=== PATIENT | male | born 1985 | race Asian ===

== ENCOUNTER 2017-03-27 15:32 | Emergency (ER) | payer BC, OTHER ==
[~2017-03-27] VITALS: Ht 167.6 cm; Wt 56.7 kg
--- NOTE | 2017-03-27 16:00 | NUR ---
PT CAME IN FOR "SHINGLES", LL ABD PAIN AND BACK PAIN. NAD NOTED. REPORTS HAVING SAME SYMPTOMS OF SHINGLES 3 YEARS AGO. AT FOR EVAL. VSS. SAFETY AND COMFORT MEASURES PROVIDED. WILL MONITOR.
[2017-03-27 16:15] LABS: APPEARANCE,URINE Clear (CLEAR); BILIRUBIN,URINE Negative (NEGATIVE); BLOOD, URINE Negative Ery/uL (NEGATIVE); COLOR,URINE Yellow (YELLOW); KETONES,URINE Negative (NEGATIVE); LEUKOCYTE ESTERASE ,URINE Negative (NEGATIVE); NITRITE, URINE Negative (NEGATIVE); PH,URINE 7.5 (5.0-8.0); PROTEIN,URINE Negative (NEGATIVE); UGLUCOSE Negative (NEGATIVE); UROBILINOGEN,URINE 0.2 EU/dL (0.2)
--- NOTE | 2017-03-27 16:33 | NUR ---
Patient discharged to home in stable condition. Written and verbal after care instructions given. Patient verbalizes understanding of instruction.
[2017-03-27 16:34] VITALS: BP 130/74
== END 2017-03-27 16:36 | disposition home or self-care (01) ==
LOC: ER 15:38
DX: B02.9 Zoster without complications (principal)
CPT/HCPCS: 81001; 82962; 99283; A4606; Z7610; 81000-TC

== ENCOUNTER 2018-11-03 12:08 | Emergency (ER) | payer BC, MEDICAID ==
[~2018-11-03] VITALS: Ht 167.6 cm; Wt 63.5 kg
[2018-11-03 12:19] VITALS: BP 131/88
--- NOTE | 2018-11-03 12:23 | NUR ---
PT MADE COMFORTABLE AWAITING MD.
== END 2018-11-03 12:56 | disposition home or self-care (01) ==
LOC: ER 12:18
DX: R21 Rash and other nonspecific skin eruption (principal)

== ENCOUNTER 2019-07-03 11:28 | Emergency (ER) | payer BC, MEDICAID ==
[~2019-07-03] VITALS: Ht 167.6 cm; Wt 65.3 kg
[2019-07-03 11:34] VITALS: BP 134/91
== END 2019-07-03 12:34 | disposition home or self-care (01) ==
LOC: ER 11:34
DX: M54.42 Lumbago with sciatica, left side (principal); F10.10 Alcohol abuse, uncomplicated; Y90.9 Presence of alcohol in blood, level not specified

== ENCOUNTER 2019-07-08 09:05 | Emergency (ER) | payer BC, OTHER ==
[~2019-07-08] VITALS: Ht 170.2 cm; Wt 70.8 kg
[2019-07-08 09:13] VITALS: BP 119/82
--- NOTE | 2019-07-08 09:44 | NUR ---
PT. VERBALIZED UNDERSTANDING OF AFTERCARE INSTRUCTIONS. Patient discharged to home in stable condition. Written and verbal after care instructions given. Patient verbalizes understanding of instruction.
== END 2019-07-08 10:12 | disposition home or self-care (01) ==
LOC: ER 09:05
DX: M54.5 Low back pain (principal); F10.10 Alcohol abuse, uncomplicated; Y90.9 Presence of alcohol in blood, level not specified

== ENCOUNTER 2019-11-19 15:07 | Outpatient (CLI) | payer BC, OTHER | END 2019-11-19 23:59 | disposition home or self-care (01) | LOC: RAD 15:07 | DX: M41.84 Other forms of scoliosis, thoracic region (principal); M41.82 Other forms of scoliosis, cervical region | CPT/HCPCS: 72050-TC; 72074-TC ==

== ENCOUNTER 2020-01-25 10:40 | Emergency (ER) | payer BC, OTHER ==
[~2020-01-25] VITALS: Ht 167.6 cm; Wt 61.2 kg
[2020-01-25 10:47] VITALS: BP 124/74
== END 2020-01-25 11:21 | disposition home or self-care (01) ==
LOC: ER 10:43
DX: Z20.828 Contact with and (suspected) exposure to other viral communicable diseases (principal)
CPT/HCPCS: 36415; U0002